=== PATIENT | male | born 1990 | race Caucasian/White ===

== ENCOUNTER 2017-05-19 19:49 | Emergency (ER) | payer MEDICAID ==
[~2017-05-19] VITALS: Ht 180.3 cm; Wt 102.0 kg
[2017-05-19 20:34] VITALS: Ht 180.3 cm; Wt 102.0 kg
[2017-05-19 21:35] VITALS: BP 119/74
== END 2017-05-19 21:35 | disposition home or self-care (01) ==
LOC: ED 19:49
DX: T15.01XA Foreign body in cornea, right eye, initial encounter (principal); W22.8XXA Striking against or struck by other objects, initial encounter; Y93.89 Activity, other specified; Y99.8 Other external cause status; Y92.89 Other specified places as the place of occurrence of the external cause
CPT/HCPCS: 90715

== ENCOUNTER 2018-03-30 15:59 | Emergency (ER) | payer MEDICAID ==
[~2018-03-30] VITALS: Ht 180.3 cm; Wt 104.9 kg
[2018-03-30 16:12] VITALS: Ht 180.3 cm; Wt 104.9 kg
[2018-03-30 19:53] VITALS: BP 117/82
== END 2018-03-30 20:00 | disposition home or self-care (01) ==
LOC: ED 15:59
DX: M54.42 Lumbago with sciatica, left side (principal); R20.2 Paresthesia of skin
CPT/HCPCS: J1885

== ENCOUNTER 2018-10-17 23:48 | Emergency (ER) | payer MEDICAID ==
[~2018-10-17] VITALS: Ht 180.3 cm; Wt 108.9 kg
[2018-10-18 00:18] VITALS: Ht 180.3 cm; Wt 108.9 kg
[2018-10-18 01:27] VITALS: BP 141/100
== END 2018-10-18 01:27 | disposition home or self-care (01) ==
LOC: ED 23:48
DX: S93.402A Sprain of unspecified ligament of left ankle, initial encounter (principal); X58.XXXA Exposure to other specified factors, initial encounter; Y93.68 Activity, volleyball (beach) (court); Y92.89 Other specified places as the place of occurrence of the external cause; Y99.8 Other external cause status
CPT/HCPCS: J1885

== ENCOUNTER 2019-11-07 14:48 | Emergency (ER) | payer MEDICAID ==
[~2019-11-07] VITALS: Ht 180.3 cm; Wt 107.5 kg
[2019-11-07 15:05] VITALS: Ht 180.3 cm; Wt 107.5 kg
[2019-11-07 17:46] VITALS: BP 126/72
== END 2019-11-07 17:46 | disposition home or self-care (01) ==
LOC: ED 14:48
DX: T63.441A Toxic effect of venom of bees, accidental (unintentional), initial encounter (principal); Y92.89 Other specified places as the place of occurrence of the external cause
CPT/HCPCS: J0171; J1200; J2930; J3490